=== PATIENT | female | born 1995 | race Hispanic/Latino ===

== ENCOUNTER 2018-07-14 21:13 | Emergency (ER) | payer OTHER ==
[2018-07-14 21:49] VITALS: BP 122/81; PULSE 72; RESP 16; TEMP 98.5; O2SAT 100
[2018-07-14] MEDS ORDERED: Lidocaine 1% Inj (20ml) ONE (22:31)
[2018-07-14] MEDS ORDERED: Tdap Vaccine 0.5 ml Vial (10-64 yrs) IM ONE ×2 (22:50→22:55)
--- NOTE | 2018-07-14 23:05 | ED PDOC ---
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 Pt is hemodynamically intact) Past Medical History Reviewed: Historical Data, Nursing Documentation, Vital Signs Vital Signs: Last Vital Signs Temp 98.5 F 07/14/18 21:49 Pulse 72 07/14/18 21:49 Resp 16 07/14/18 21:49 BP 122/81 07/14/18 21:49 Pulse Ox 100 07/14/18 21:49 - Family History Family History: States: Unknown Family Hx - Home Medications Home Medications: Ambulatory Orders Medication Instructions Recorded Cephalexin [Keflex] 500 mg PO QID #32 capsule 07/14/18 - Allergies Allergies/Adverse Reactions: Allergies Allergy/AdvReac Type Severity Reaction Status Date / Time No Known Allergies Allergy Verified 07/14/18 22:29 Review of Systems Skin: Positive for: Other (laceration) Physical Exam - Reviewed Nursing Documentation Reviewed: Yes Vital Signs Reviewed: Yes - Physical Exam Appears: Positive for: Well, Non-toxic, No Acute Distress Head Exam: Positive for: ATRAUMATIC, NORMAL INSPECTION Skin: Positive for: Normal Color (see HPI andprocedure note) Cardiovascular/Chest: Positive for: Regular Rate, Rhythm Respiratory: Positive for: Normal Breath Sounds Pulses-Carotid (L): 2+ Pulses-Carotid (R): 2+ Pulses-Radial (L): 2+ Pulses-Radial (R): 2+ Neurologic/Psych: Positive for: Alert, Mood/Affect - ECG O2 Sat by Pulse Oximetry: 100 Medical Decision Making Medical Decision Making: Wound irrigiated and explored for foreign bodies Wound repaired with five 4-0 sutures Wound dressed and covered with topical bacitracin Disposition - Clinical Impression Clinical Impression: Laceration - Patient ED Disposition Is Patient to be Admitted: No Doctor Will See Patient In The: Office Counseled Patient/Family Regarding: Studies Performed, Diagnosis, Need For Followup, Rx Given - Disposition Disposition: Routine/Home Disposition Time: 23:04 Condition: STABLE Additional Instructions: Suture removal in 7 days Follow up with Dr MEJÍA your PMD take all antibiotics Return to ED for swelling, discharge, bleeding or fever Prescriptions: Cephalexin [Keflex] 500 mg PO QID #32 capsule Instructions: Wound Care (DC), Laceration Repair With Stitches (DC) Forms: [employer] (Lebanese) Procedure: Wound Repair - Time Performed Time Performed: 23:08 - Time Out Time Out: Side verified, Site verified, Patient ID confirmed, Sterile procedures obs. - Procedure Procedure: Wound Repair: left first digit - Performed by Performed by: Mid-level Provider - Indications Indication(s):: Laceration - Location Location:: Left, Posterior Finger:: Thumb Shape:: Linear Dimensions Length cm: 3cm Depth:: Subcutaneous fascia - Anesthetic Technique Anesthetic Technique: Local Local/Regional Anesthetic:: Lidocaine 1% - Debris Debris:: None - Irrigated Irrigated with ml of normal saline: 200 - Complexity Complexity:: Simple (one layer) - Wound repair method Sutures:: Size (4.0 nylon), Technique (single interupted) - Patient tolerated procedure Patient Tolerated Procedure:: Well (wound edges are well approximated)
== END 2018-07-14 23:29 | disposition home or self-care (01) ==
LOC: H.ER 21:13
DX: S61.012A Laceration without foreign body of left thumb without damage to nail, initial encounter (principal); W26.0XXA Contact with knife, initial encounter; Y92.89 Other specified places as the place of occurrence of the external cause; Z23 Encounter for immunization